=== PATIENT | female | born 1965 | race Asian ===

== ENCOUNTER 2025-06-18 20:46 | Emergency (ER) | payer OTHER ==
[~2025-06-18] VITALS: Ht 165.1 cm; Wt 65.0 kg
[2025-06-18 20:50] VITALS: TEMP 98.4
[2025-06-18 22:30] VITALS: BP 122/80; PULSE 74; RESP 15; O2SAT 97
[2025-06-18] MEDS ORDERED: IBUP-1492 PO (22:56)
[2025-06-18] MEDS: IBUPROFEN 600 MG TABLET PO ONE (22:56)
== END 2025-06-18 23:05 | disposition home or self-care (01) ==
LOC: EMS 20:46
DX: S80.01XA Contusion of right knee, initial encounter (principal); I10 Essential (primary) hypertension; F17.210 Nicotine dependence, cigarettes, uncomplicated; Z88.0 Allergy status to penicillin; X58.XXXA Exposure to other specified factors, initial encounter; Y93.01 Activity, walking, marching and hiking; Y92.481 Parking lot as the place of occurrence of the external cause; Y99.8 Other external cause status
CPT/HCPCS: 99283